=== PATIENT | male | born 1990 | race Two or more races ===

== ENCOUNTER 2016-10-25 22:16 | Emergency (ER) | payer SELFPAY ==
[2016-10-25 22:33] VITALS: BP 127/79; BMI 33.0
--- NOTE | 2016-10-26 00:27 | DR.GENAD ---
HPI - PCP Primary Care Physician: NFD - Complaint/Symptoms Chief Complaint Doctors Comments: Blister on penis for 2 days. Chief Complaint:: "I have some blisters on my penis that burn and hurt when I touch them. It also owen when I pee. It has been going on for about 3 days but is getting worse." - Source History Provided: Patient - Mode of Arrival Mode of Arrival: Ambulatory - Timing Onset of Chief Complaint: 10/22/16 PMH - PMH Past Medical History: No Past Surgical History: No - Family History History of Family Medical Conditions: No - Social History Does patient currently use any type of tobacco product: No Have you used tobacco products in the last 12 months: No Type of Tobacco Use: None Does any household member use tobacco: No Do you use any recreational Drugs:: No Lives Where: Home - infectious screening In the last 2 months have you had wt loss of >10#?: NO Have you had fever, night sweats or hemotysis?: No Have you traveled outside the country in the last 6 months?: No Isolation: Standard ROS - Review of Systems All Other Systems: Reviewed and Negative PE - Vital Signs Vitals: Temperature 98.5 F Pulse Rate 75 Respiratory Rate 18 Blood Pressure 127/79 O2 Sat by Pulse Oximetry 97 - General Limitations: Language Barrier General Appearance: Alert, In No Apparent Distress - Respiratory Respiratory Exam: Normal Lung Sounds Bilat - Cardiovascular Cardiovascular Exam: Regular Rate, Normal Rhythm, Normal Heart Sounds - Abdominal Exam Abdominal Exam: Normal Inspection - Diagnosis Discharge Problem: Penile abnormality, Herpes genitalis in men - Discharge Plan Disposition: 01 HOME, SELF-CARE Condition: Stable Prescriptions: Acyclovir [Zovirax] 800 mg PO 5XD #1 tab - Follow ups/Referrals Follow ups/Referrals: NFD,None [Primary Care Provider] - 3 days - Instructions Instructions: Herpes Simplex Test, Herpes Labialis, Contact Precautions, Easy- to-Read, Herpes Simplex Virus-SportsMed Additional Notes Additional Notes: glans and head of penis with blister, dried and fresh. Also areas of leukoplakia.
[2016-10-26] MEDS ORDERED: ZOVIRAX ONE (01:02)
[2016-10-26] MEDS ORDERED: ZOVIRAX PO SCH (05:00)
== END 2016-10-26 01:08 | disposition home or self-care (01) ==
LOC: ER 22:37
DX: A60.02 Herpesviral infection of other male genital organs (principal); N48.9 Disorder of penis, unspecified
CPT/HCPCS: 99281; 99282